=== PATIENT | male | born 1960 | race American Indian/Alaskan Native ===

== ENCOUNTER 2019-12-23 12:42 | Emergency (ER) | payer MEDICAID, OTHER ==
[2019-12-23 13:47] LABS: Bilirubin,Urine NEG (Negative); Blood,Urine NEG (Negative); Color,Urine Colorless (Yellow); Protein,Urine <15 mg/dL mg/dL (Negative); Urobilinogen,Urine < 2.0 mg/dL (<2.0)
[2019-12-23 13:48] LABS: WBC,Urine < 1.0 /HPF (0.0-6.0)
--- NOTE | 2019-12-23 13:53 | Emergency Department Report ---
ED Psych HPI - General Chief Complaint: Medical Clearance Stated Complaint: MEDICAL CLEARANCE FOR FREDRICK Time Seen by Provider: 12/23/19 13:52 Source: patient Mode of arrival: Ambulatory Limitations: No Limitations - History of Present Illness Initial Comments: Mr Moise is a pleasant 59-year-old -[place] male who presents to the ER today requesting help for his alcohol abuse. He last drank this morning. He states that he pretty much drinks all day long from sun up until he goes to sleep. If he runs out of liquor he will go to the store and get more. He states that he is drank off and on since he was 19 years of age. This last jm e has been for the last 3 to 4 months. Patient has smoked since the age of 18 about a half a pack per day. He denies any illicit drug use. Patient comes to the ER because he is afraid that if he does not quit drinking he would lose his job which he has not been able to go to for 2 to 3 weeks. He is also concerned that he would then lose his family. Patient states that he has been depressed because he has gone to college and he is not in the job that he wants to be in. Patient denies HI or SI. Patient takes hydrochlorothiazide and meloxicam daily. Patient has had 2 prior back surgeries. He has recently seen his primary care doctor at [facility] for left thigh pain. Patient has had MRIs and ultrasounds of the leg. He has been sent to pain management for his acute on chronic leg pain. I am not concerned that this is acute issue that would prohibit him from detox. Patient is tremulous on initial exam. RICHELLE suarez MD Complaint: feels depressed -: Gradual, month(s) Associated Psychiatric Symptoms: depression History of same: No Context: recent alcohol abuse Associated Symptoms: denies other symptoms, insomnia Treatments Prior to Arrival: none - Related Data Previous Rx's Medication Instructions Recorded Last Taken Type Cyclobenzaprine HCl [Flexeril] 10 mg PO TID PRN #15 tablet 07/28/13 Unknown Rx Hydrocodone Bit/Acetaminophen 1 - 2 each PO Q4-6H PRN #15 tablet 07/28/13 Unknown Rx [Lortab 5-500 Tablet] Ibuprofen [Motrin 800 MG tab] 800 mg PO TID PRN #20 tablet 07/28/13 Unknown Rx Allergies Allergy/AdvReac Type Severity Reaction Status Date / Time No Known Allergies Allergy Unverified 07/28/13 12:22 ED Review of Systems ROS: Stated complaint: MEDICAL CLEARANCE FOR FREDRICK Other details as noted in HPI Comment: All other systems reviewed and negative ED Past Medical Hx - Past Medical History Previous Medical History?: Yes Hx Hypertension: Yes Hx COPD: Yes Additional medical history: Chronic Back pain- 2 surgeries in past; now with a/c l thigh pain - Surgical History Past Surgical History?: Yes Additional Surgical History: "lower back surgery" - Family History Family history: other (mom dec dementia and dad dec ca) - Social History Smoking Status: Current Every Day Smoker Substance Use Type: Alcohol Other Social History: NOK Drives fork lift for living - Medications Home Medications: Home Medications Medication Instructions Recorded Confirmed Last Taken Type Cyclobenzaprine HCl [Flexeril] 10 mg PO TID PRN #15 tablet 07/28/13 Unknown Rx Hydrocodone Bit/Acetaminophen 1 - 2 each PO Q4-6H PRN #15 tablet 07/28/13 Unknown Rx [Lortab 5-500 Tablet] Ibuprofen [Motrin 800 MG tab] 800 mg PO TID PRN #20 tablet 07/28/13 Unknown Rx ED Physical Exam - General Limitations: No Limitations General appearance: alert, in no apparent distress - Head Head exam: Present: atraumatic, normocephalic - Eye Eye exam: Present: normal appearance - ENT ENT exam: Present: mucous membranes moist - Neck Neck exam: Present: normal inspection - Respiratory Respiratory exam: Present: normal lung sounds bilaterally. Absent: respiratory distress - Cardiovascular Cardiovascular Exam: Present: regular rate, normal rhythm. Absent: systolic murmur, diastolic murmur, rubs, gallop - GI/Abdominal GI/Abdominal exam: Present: soft, normal bowel sounds - Rectal Rectal exam: Present: deferred - Extremities Exam Extremities exam: Present: normal inspection - Back Exam Back exam: Present: normal inspection - Neurological Exam Neurological exam: Present: alert, oriented X3 - Psychiatric Psychiatric exam: Present: depressed - Skin Skin exam: Present: warm, dry, intact, normal color. Absent: rash ED Course Vital Signs 12/23/19 12/23/19 12:53 17:47 Temperature 97.6 F 99.0 F Pulse Rate 93 H 91 H Respiratory 18 20 Rate Blood Pressure 164/110 Blood Pressure 161/107 [Left] O2 Sat by Pulse 98 98 Oximetry - Reevaluation(s) Reevaluation #1: 12/23/19 14:16 Dylan BOWDEN aware of pt presentation Reevaluation #2: 12/23/19 16:53 PT FORGOT HIS INHALER AND IS REQUESTING JOSE MILNER RN HAS SPOKE WITH [facility] AND THEY WILL SEE HIM VIA PHONE SHORTLY- FOR PLAN OF CARE Reevaluation #3: 12/23/19 17:57 PT WITH NO COMPLAINTS TAKING PO COOPERATIVE PENDING PLACEMENT ED Medical Decision Making - Lab Data Result diagrams: 12/23/19 13:37 12/23/19 13:37 - Medical Decision Making Lab Results 12/23/19 12/23/19 12/23/19 Range/Units 13:37 13:37 13:37 WBC 4.5 (4.5-11.0) K/mm3 RBC 4.52 (3.65-5.03) M/mm3 Hgb 15.0 (11.8-15.2) gm/dl Hct 43.4 (35.5-45.6) % MCV 96 H (84-94) fl MCH 33 H (28-32) pg MCHC 35 H (32-34) % RDW 13.7 (13.2-15.2) % Plt Count 184 (140-440) K/mm3 Lymph % (Auto) 45.2 H (13.4-35.0) % [place] % (Auto) 9.4 H (0.0-7.3) % Eos % (Auto) 0.4 (0.0-4.3) % Baso % (Auto) 1.0 (0.0-1.8) % Lymph # 2.0 (1.2-5.4) K/mm3 [place] # 0.4 (0.0-0.8) K/mm3 Eos # 0.0 (0.0-0.4) K/mm3 Baso # 0.0 (0.0-0.1) K/mm3 Seg Neutrophils % 44.0 (40.0-70.0) % Seg Neutrophils # 2.0 (1.8-7.7) K/mm3 Sodium 142 (137-145) mmol/L Potassium 3.7 (3.6-5.0) mmol/L Chloride 100.0 (98-107) mmol/L Carbon Dioxide 25 (22-30) mmol/L Anion Gap 21 mmol/L BUN 10 (9-20) mg/dL Creatinine 0.7 L (0.8-1.5) mg/dL Estimated GFR > 60 ml/min BUN/Creatinine Ratio 14 % Glucose 107 H (75-100) mg/dL Calcium 9.5 (8.4-10.2) mg/dL Magnesium (1.7-2.3) mg/dL Total Bilirubin 0.90 (0.1-1.2) mg/dL AST 110 H (5-40) units/L ALT 47 (7-56) units/L Alkaline Phosphatase 79 (35-129) units/L Total Protein 8.8 H (6.3-8.2) g/dL Albumin 5.0 (3.9-5) g/dL Albumin/Globulin Ratio 1.3 % Urine Color (Yellow) Urine Turbidity (Clear) Urine pH (5.0-7.0) Ur Specific [place] (1.003-1.030) Urine Protein (Negative) mg/dL Urine Glucose (UA) (Negative) mg/dL Urine Ketones (Negative) mg/dL Urine Blood (Negative) Urine Nitrite (Negative) Urine Bilirubin (Negative) Urine Urobilinogen (<2.0) mg/dL Ur Leukocyte Esterase (Negative) Urine WBC (Auto) (0.0-6.0) /HPF Urine RBC (Auto) (0.0-6.0) /HPF Urine Opiates Screen Urine Methadone Screen Ur Barbiturates Screen Ur Phencyclidine Scrn Ur Amphetamines Screen U Benzodiazepines Scrn Urine Cocaine Screen U Marijuana (THC) Screen Drugs of Abuse Note Plasma/Serum Alcohol 0.30 H (0-0.07) % 12/23/19 12/23/19 12/23/19 Range/Units 13:37 Unknown Unknown WBC (4.5-11.0) K/mm3 RBC (3.65-5.03) M/mm3 Hgb (11.8-15.2) gm/dl Hct (35.5-45.6) % MCV (84-94) fl MCH (28-32) pg MCHC (32-34) % RDW (13.2-15.2) % Plt Count (140-440) K/mm3 Lymph % (Auto) (13.4-35.0) % [place] % (Auto) (0.0-7.3) % Eos % (Auto) (0.0-4.3) % Baso % (Auto) (0.0-1.8) % Lymph # (1.2-5.4) K/mm3 [place] # (0.0-0.8) K/mm3 Eos # (0.0-0.4) K/mm3 Baso # (0.0-0.1) K/mm3 Seg Neutrophils % (40.0-70.0) % Seg Neutrophils # (1.8-7.7) K/mm3 Sodium (137-145) mmol/L Potassium (3.6-5.0) mmol/L Chloride (98-107) mmol/L Carbon Dioxide (22-30) mmol/L Anion Gap mmol/L BUN (9-20) mg/dL Creatinine (0.8-1.5) mg/dL Estimated GFR ml/min BUN/Creatinine Ratio % Glucose (75-100) mg/dL Calcium (8.4-10.2) mg/dL Magnesium 2.50 H (1.7-2.3) mg/dL Total Bilirubin (0.1-1.2) mg/dL AST (5-40) units/L ALT (7-56) units/L Alkaline Phosphatase (35-129) units/L Total Protein (6.3-8.2) g/dL Albumin (3.9-5) g/dL Albumin/Globulin Ratio % Urine Color Colorless (Yellow) Urine Turbidity Clear (Clear) Urine pH 7.0 (5.0-7.0) Ur Specific [place] 1.002 L (1.003-1.030) Urine Protein <15 mg/dl (Negative) mg/dL Urine Glucose (UA) Neg (Negative) mg/dL Urine Ketones Neg (Negative) mg/dL Urine Blood Neg (Negative) Urine Nitrite Neg (Negative) Urine Bilirubin Neg (Negative) Urine Urobilinogen < 2.0 (<2.0) mg/dL Ur Leukocyte Esterase Neg (Negative) Urine WBC (Auto) < 1.0 (0.0-6.0) /HPF Urine RBC (Auto) 1.0 (0.0-6.0) /HPF Urine Opiates Screen Presumptive negative Urine Methadone Screen Presumptive negative Ur Barbiturates Screen Presumptive negative Ur Phencyclidine Scrn Presumptive negative Ur Amphetamines Screen Presumptive negative U Benzodiazepines Scrn Presumptive negative Urine Cocaine Screen Presumptive negative U Marijuana (THC) Screen Presumptive negative Drugs of Abuse Note Disclamer Plasma/Serum Alcohol (0-0.07) % Vital Signs 12/23/19 12:53 Temperature 97.6 F Pulse Rate 93 H Respiratory 18 Rate Blood Pressure 164/110 O2 Sat by Pulse 98 Oximetry 1455 MEDICALLY CLEARED FOR MHE. MENTAL HEALTH STAFF AWARE. [facility] AND CIWA INITIATED DISPO PER MHE COPD- REQUESTING DUONEB BECAUSE HE DID NOT BRING HIS INHALER 1645 MHE PHONED; ASSESSMENT PENDING- DISPO PER E 1800 VSS NO COMPLAINTS PENDING PLACEMENT PER MHE - Differential Diagnosis mhe -etoh abuse/depression Critical care attestation.: If time is entered above; I have spent that time in minutes in the direct care of this critically ill patient, excluding procedure time. ED Disposition Clinical Impression: Alcohol abuse, Depressed Disposition: DC/TX-65 PSY HOSP/PSY UNIT Is pt being admited?: No Does the pt Need Aspirin: No Condition: Stable Referrals: RICHADR BENAVIDEZ MD [Primary Care Provider] - 3-5 Days DAVID SHRESTHA MD [Staff Physician] - 3-5 Days Time of Disposition: 14:17
[2019-12-23 13:58] LABS: Amphetamine Screen,Urine PRESUMPTIVE NEGATIVE; Benzodiazepines Screen,Urine PRESUMPTIVE NEGATIVE; Cannabinoid Screen,Urine PRESUMPTIVE NEGATIVE; Cocaine Screen,Urine PRESUMPTIVE NEGATIVE; Methadone Screen,Urine PRESUMPTIVE NEGATIVE; Opiate Screen,Urine PRESUMPTIVE NEGATIVE
[2019-12-23] MEDS ORDERED: chlordiazePOXIDE 25 MG CAP PO PRN ×2 (14:08)
[2019-12-23 14:29] LABS: Eosinophils % (Auto) 0.4 % (0.0-4.3); Hematocrit 43.4 % (35.5-45.6); Lymphocytes % (Auto) 45.2 % (13.4-35.0); Mean Corpuscular HGB Conc 35 % (32-34); Mean Corpuscular Volume 96 fl (84-94); Monocytes # (Auto) 0.4 K/mm3 (0.0-0.8); Monocytes % (Auto) 9.4 % (0.0-7.3); Platelet Count 184 K/mm3 (140-440); Red Blood Count 4.52 M/mm3 (3.65-5.03); Red Cell Distribution Width 13.7 % (13.2-15.2)
[2019-12-23 14:50] LABS: Alanine Aminotransferase 47 units/L (7-56); BUN/Creatinine Ratio 14; Blood Urea Nitrogen 10 mg/dL (9-20); Calcium 9.5 mg/dL (8.4-10.2); Hemolysis Index 5
[2019-12-23] MEDS ORDERED: THIAMINE 100 MG TAB PO ONE (15:00)
[2019-12-23] MEDS ORDERED: FOLIC ACID 1 MG, MULTIPLE VITAMIN INJ, ADULT 10 ML in SODIUM CHLORIDE 0.9% 1000 ML 1,00... IV ONE (15:30)
[2019-12-23 15:51] LABS: INR 0.99 (0.87-1.13)
[2019-12-23] MEDS ORDERED: IPRATROPIUM/ALBUTEROL SULFATE 3 ML AMPUL.NEB IH ONE (16:34)
[2019-12-23 17:44] LABS: Bilirubin,Urine NEG (Negative); Blood,Urine SM (Negative); Color,Urine Yellow (Yellow); Mucus,Urine FEW /HPF; Protein,Urine <15 mg/dL mg/dL (Negative)
[2019-12-23] MEDS ORDERED: cloNIDine 0.2 MG TAB PO ONE (18:21)
[2019-12-23] MEDS ORDERED: LORazepam 1 MG TAB PO ONE (18:35)
[2019-12-23 18:55] VITALS: BP 149/104
== END 2019-12-23 22:26 ==
LOC: ED 12:42
DX: F10.129 Alcohol abuse with intoxication, unspecified (principal); F32.89 Other specified depressive episodes; I10 Essential (primary) hypertension; J44.9 Chronic obstructive pulmonary disease, unspecified; F17.200 Nicotine dependence, unspecified, uncomplicated; G89.29 Other chronic pain; Z79.899 Other long term (current) drug therapy
CPT/HCPCS: 36415; 80053; 80307; 81001; 83735; 85025; 85610; 96365; 96366; 99285; J7030; 80320; G0480

== ENCOUNTER 2021-10-09 13:35 | Emergency (ER) | payer BC, OTHER ==
[2021-10-09] MEDS ORDERED: ONDANSETRON 4 MG ODT TAB PO ONE (14:57)
--- NOTE | 2021-10-09 14:57 | Emergency Department Report ---
ED Fall HPI - General Chief Complaint: Fall Stated Complaint: FALL, HEAD INJURY Time Seen by Provider: 10/09/21 14:43 Source: patient Mode of arrival: Ambulatory - History of Present Illness Initial Comments: Patient presents secondary to a fall. He is with family. No one really knows how he fell. He was outside with some construction workers. He got off of a truck and fell. He did hit his head. Reportedly he is on blood thinners but neither he nor his family can name what he takes. Patient had no reported loss of consciousness. He states that he is hurting all over. He reports that his hips hurt. His head hurts. He states that his hips are "[id number]." He came in for further evaluation and treatment. He has been bleeding from the right brow area. He is unsure when his last tetanus shot occurred. Patient has no blurry vision. He has no neck pain. He states that his back is sore. He states his legs are sore and his hips hurt. It should be noted he has been ambulatory since the fall without difficulty. - Related Data Previous Rx's Medication Instructions Recorded Last Taken Type Cyclobenzaprine HCl [Flexeril] 10 mg PO TID PRN #15 tablet 07/28/13 Unknown Rx Hydrocodone Bit/Acetaminophen 1 - 2 each PO Q4-6H PRN #15 tablet 07/28/13 Unknown Rx [Lortab 5-500 Tablet] Ibuprofen [Motrin 800 MG tab] 800 mg PO TID PRN #20 tablet 07/28/13 Unknown Rx Allergies Allergy/AdvReac Type Severity Reaction Status Date / Time celecoxib [From Celebrex] AdvReac Hives Verified 10/09/21 14:10 ED Review of Systems ROS: Stated complaint: FALL, HEAD INJURY Other details as noted in HPI Comment: All other systems reviewed and negative Constitutional: denies: fever Eyes: denies: vision change ENT: denies: throat pain Respiratory: denies: cough Cardiovascular: denies: chest pain Endocrine: denies: unexplained weight loss Gastrointestinal: denies: nausea, vomiting Genitourinary: denies: dysuria Musculoskeletal: as per HPI Skin: denies: rash Neurological: as per HPI Hematological/Lymphatic: denies: easy bruising ED Past Medical Hx - Past Medical History Previous Medical History?: Yes Hx Hypertension: Yes Hx COPD: Yes Additional medical history: Chronic Back pain- 2 surgeries in past; now with a/c l thigh pain - Surgical History Additional Surgical History: "lower back surgery" - Family History Family history: hypertension - Social History Smoking Status: Current Every Day Smoker (We discussed tobacco cessation) Substance Use Type: Alcohol - Medications Home Medications: Home Medications Medication Instructions Recorded Confirmed Last Taken Type Cyclobenzaprine HCl [Flexeril] 10 mg PO TID PRN #15 tablet 07/28/13 Unknown Rx Hydrocodone Bit/Acetaminophen 1 - 2 each PO Q4-6H PRN #15 tablet 07/28/13 Unknown Rx [Lortab 5-500 Tablet] Ibuprofen [Motrin 800 MG tab] 800 mg PO TID PRN #20 tablet 07/28/13 Unknown Rx ED Physical Exam - General Limitations: Physical Limitation (Poor historian), Other (Pulse ox noted and normal) General appearance: alert, in no apparent distress - Head Head exam: Present: normocephalic, other (Abrasions to the right lateral brow) - Eye Eye exam: Present: normal appearance, PERRL, EOMI. Absent: scleral icterus - ENT ENT exam: Present: normal orophraynx, normal external ear exam - Neck Neck exam: Present: normal inspection. Absent: tenderness, meningismus - Respiratory Respiratory exam: Present: normal lung sounds bilaterally. Absent: respiratory distress - Cardiovascular Cardiovascular Exam: Present: regular rate, normal rhythm - GI/Abdominal GI/Abdominal exam: Present: soft. Absent: tenderness - Extremities Exam Extremities exam: Present: normal capillary refill, other (Patient reports having tenderness and pain in the anterior pelvis area but not posterior hips). Absent: calf tenderness - Back Exam Back exam: Present: paraspinal tenderness (Diffuse lumbar). Absent: CVA tenderness (R), CVA tenderness (L) - Neurological Exam Neurological exam: Present: alert, altered (Confused at baseline), CN II-XII intact, normal gait, reflexes normal. Absent: motor sensory deficit - Psychiatric Psychiatric exam: Present: normal affect, normal mood - Skin Skin exam: Present: warm, dry ED Course Vital Signs 10/09/21 10/09/21 14:08 15:53 Temperature 98.7 F Pulse Rate 96 H Respiratory 16 18 Rate Blood Pressure 147/102 [Right] O2 Sat by Pulse 97 Oximetry - Reevaluation(s) Reevaluation #1: 10/09/21 14:57 CT ordered. Reevaluation #2: 10/09/21 16:52 Radiographs are noted and the patient was discharged. ED Medical Decision Making - Medical Decision Making Patient presented with a fall and head injury. He is anticoagulated. There was no evidence of bleed on CT. He does not have evidence of acute fracture. He complained of hip pain but there is no evidence of acute hip fracture. Patient was treated symptomatically and discharged. He was instructed to ice the sore areas. There is no thoracoabdominal trauma that would necessitate imaging. Critical Care Time: No Critical care attestation.: If time is entered above; I have spent that time in minutes in the direct care of this critically ill patient, excluding procedure time. ED Disposition Clinical Impression: Fall Qualifiers: Encounter type: initial encounter Qualified Code(s): W19.XXXA - Unspecified fall, initial encounter Closed head injury Qualifiers: Encounter type: initial encounter Qualified Code(s): S09.90XA - Unspecified injury of head, initial encounter Forehead abrasion Qualifiers: Encounter type: initial encounter Qualified Code(s): S00.81XA - Abrasion of ot her part of head, initial encounter Lumbar strain Qualifiers: Encounter type: initial encounter Qualified Code(s): S39.012A - Strain of muscle, fascia and tendon of lower back, initial encounter Disposition: 01 HOME / SELF CARE / HOMELESS Is pt being admited?: No Condition: Stable Instructions: Lumbar Sprain, Muscle Strain, [id number], Head Injury, Adult, [id number], How to Use Cold Therapy, Abrasion, [id number] Additional Instructions: Keep the abrasions clean. Apply ice to sore areas. Drink plenty of water. Return for problems. Follow-up with your regular doctor for recheck and further management. Continue to use Tylenol [id number]. Referrals: PRIMARY CARE, [Referring] - 3-5 Days
[2021-10-09] MEDS ORDERED: HYDROcodone/ACETAMINOPHEN 5-325 MG TAB PO ONE (14:58)
--- NOTE | 2021-10-09 15:32 | Cat Scan Report ---
CT BRAIN: 10/09/2021 INDICATION / CLINICAL INFORMATION: head injury on thinners. COMPARISON: None available. FINDINGS: BRAIN/INTRACRANIAL STRUCTURES: Unenhanced CT images of the brain were obtained. No previous studies a re available here for comparison. There is no evidence of acute abnormality. A wedge shaped area of cortical encephalomalacia is presen t in the anterior left frontal lobe, consistent with prior ischemic injury. Ventricles and sulci are at the upper limits of normal in size and shape for a patient of this age. There is no evidence of acute large vessel territory ischemic injury, hemorrhage, or mass. There are no abnormal extra-axial fluid collections. EXTRACRANIAL STRUCTURES: Unremarkable. IMPRESSION: No acute abnormality. Chronic left frontal ischemic encephalomalacia. All CT scans at this location are performed using dose reduction to ALARA by means of automated expos ure control. Signer Name: Robert Negron MD Signed: 10/09/2021 3:28 PM Workstation Name: [id number]
--- NOTE | 2021-10-09 16:25 | XRay Report ---
XR pelvis 1-2V INDICATION / CLINICAL INFORMATION: fall. COMPARISON: None available. FINDINGS: No acute fracture. Normal alignment. Joint spaces are preserved. No destructive osseous lesion or s uspicious periosteal reaction. Impression: 1.No acute fracture. Signer Name: Uriah Lopez MD Signed: 10/09/2021 4:20 PM Workstation Name: [id number]
[2021-10-09 17:16] VITALS: BP 154/102
== END 2021-10-09 17:14 | disposition home or self-care (01) ==
LOC: ED 13:35
DX: S39.012A Strain of muscle, fascia and tendon of lower back, initial encounter (principal); S09.90XA Unspecified injury of head, initial encounter; S00.81XA Abrasion of other part of head, initial encounter; F17.200 Nicotine dependence, unspecified, uncomplicated; I10 Essential (primary) hypertension; W19.XXXA Unspecified fall, initial encounter; Y93.89 Activity, other specified; Y92.89 Other specified places as the place of occurrence of the external cause; Y99.8 Other external cause status
CPT/HCPCS: 70450; 72170; 99284; J3490; Q0162